=== PATIENT | female | born 1975 | race Asian ===

== ENCOUNTER 2018-03-03 16:45 | Outpatient (REF) | payer OTHER, SELFPAY ==
[2018-03-05 14:36] LABS: Chlamydia Result Negative; GC Result Negative; Specimen Description CERVIX
== END 2018-03-03 16:46 ==
LOC: LBN 16:45
PROVIDERS: PCP Internal Medicine; Visit Provider Nurse Practitioner Women's Health
DX: Z11.3 Encounter for screening for infections with a predominantly sexual mode of transmission (principal)
CPT/HCPCS: 87491; 87591

== ENCOUNTER 2019-01-18 07:16 | Outpatient (CLI) | payer BC, SELFPAY ==
[2019-01-18 08:33] LABS: Anion Gap 9.3 mmol/L (3-11); BUN 9 mg/dL (7-18); CO2 27.7 mmol/L (21.0-32.0); CREATININE 0.79 mg/dL (0.55-1.02); Calcium 9.3 mg/dL (8.5-10.1); Calculated LDL 100 mg/dL; Chloride 103 mmol/L (98-107); Cholesterol 188 mg/dL (50-200); Glucose 162 mg/dL (70-100); HDL Cholesterol 45 mg/dL (40-60); Potassium 4.4 mmol/L (3.5-5.1); Sodium 140 mmol/L (136-145); Triglyceride 215 mg/dL (30-150)
== END 2019-01-18 07:36 ==
PROVIDERS: PCP Internal Medicine; Visit Provider Internal Medicine
DX: I10 Essential (primary) hypertension (principal)
CPT/HCPCS: 36415; 80048; 80061; 83721

== ENCOUNTER 2019-02-03 13:52 | Outpatient (CLI) | payer BC, SELFPAY ==
[2019-02-03 14:41] LABS: Hemoglobin A1C 6.7 % (4.5-6.2)
== END 2019-02-03 14:12 ==
PROVIDERS: PCP Internal Medicine; Visit Provider Internal Medicine
DX: E11.9 Type 2 diabetes mellitus without complications (principal)
CPT/HCPCS: 36415; 83036

== ENCOUNTER 2022-05-14 03:28 | Outpatient (CLI) | payer OTHER, SELFPAY ==
[2022-05-14 08:51] LABS: Anion Gap 4.9 mmol/L (3-11); BUN 13 mg/dL (7-18); CO2 30.1 mmol/L (21.0-32.0); CREATININE 0.7 mg/dL (0.55-1.02); Calcium 8.7 mg/dL (8.5-10.1); Calculated LDL 97 mg/dL (<100); Chloride 103 mmol/L (98-107); Cholesterol 179 mg/dL (<200); Estimated GFR 107.95 (mL/min/1.73m2); Glucose 118 mg/dL (74-106); HDL Cholesterol 60 mg/dL (40-60); Potassium 3.6 mmol/L (3.5-5.1); Sodium 138 mmol/L (136-145); Triglyceride 111 mg/dL (<150)
[2022-05-14 09:38] LABS: COMMENT (LAB VIEW ONLY) 48.98 mg/dL; Microalb ug/mg Crea 3.5 ug/mg Cr
== END 2022-05-14 03:29 | disposition home or self-care (01) ==
LOC: LBO 03:28
PROVIDERS: PCP Nurse Practitioner Adult Health; Visit Provider Nurse Practitioner Adult Health
DX: I10 Essential (primary) hypertension (principal); E11.9 Type 2 diabetes mellitus without complications
CPT/HCPCS: 36415; 80048; 80061; 82043; 82570

== ENCOUNTER 2023-02-17 15:07 | Outpatient (REF) | payer BC, SELFPAY ==
--- NOTE | 2023-02-17 14:00 | PAPFT_PTH ---
PATIENT: Ashly Daly LOC: [facility] U#:[id number] AGE/SX: 47/F ROOM: RE02/17/[address]: Janis Jones APRN : 1975 BED: DIS: 02/17/2023 SPEC #: [id number] RECD: 02/17/23 17:25 STATUS: JORGE L JETT #: [id number] JESSICA: 02/17/23 14:[address]: Janis Jones DEPT: [facility] Cytology RECD BY: Anni Garcia Tissues: 1 - CX/ENDOCX FOR PAP SMEARS Procedures: PAP THIN PREP/[facility] Screening HPV DNA PROBE Comments: [id number]
== END 2023-02-17 15:08 | disposition home or self-care (01) ==
LOC: LBN 15:07
PROVIDERS: PCP Nurse Practitioner Adult Health; Visit Provider Nurse Practitioner Adult Health
DX: Z12.4 Encounter for screening for malignant neoplasm of cervix (principal); Z11.51 Encounter for screening for human papillomavirus (HPV)
CPT/HCPCS: 88142; 87624

== ENCOUNTER 2023-02-18 09:54 | Outpatient (REF) | payer BC, SELFPAY ==
[2023-02-23 13:30] LABS: Helicobacter pylori Ag, Feces Positive (Negative)
== END 2023-02-18 09:55 | disposition home or self-care (01) ==
LOC: LBN 09:54
PROVIDERS: PCP Nurse Practitioner Adult Health; Visit Provider Nurse Practitioner Adult Health
DX: R14.3 Flatulence (principal); R12 Heartburn
CPT/HCPCS: 87338

== ENCOUNTER → 2023-06-26 00:58 | Outpatient (CLI) | payer BC, SELFPAY ==
--- NOTE | 2023-06-26 12:51 | DI.RAD_ITS ---
Exam(s) XR CHEST 2V PA LATERAL EXAM: XR CHEST 2V PA LATERAL CLINICAL HISTORY: screening,+ ppd (had BCG). TECHNIQUE: 2D digital imaging was performed. COMPARISON: CR CHEST 2 VIEWS PA,LAT from 06/15/2015 FINDINGS: 2 views: Heart size is normal. The mediastinum is not widened. Lungs are clear. No infiltrates nor pleural effusions. IMPRESSION: No acute pulmonary findings. DATA REPOSITORY: RADIATION DOSE DELIVERED:
== END ==
PROVIDERS: PCP Nurse Practitioner Adult Health; Visit Provider Nurse Practitioner Family
DX: Z11.1 Encounter for screening for respiratory tuberculosis (principal)
CPT/HCPCS: 71046

== ENCOUNTER 2025-06-26 01:25 | Outpatient (CLI) | payer BC, SELFPAY ==
[2025-06-26 07:59] LABS: Hemoglobin A1C 6.5 % (<5.7)
[2025-06-26 08:11] LABS: Anion Gap 7.9 mmol/L (3-11); BUN 12 mg/dL (9-23); CO2 27.1 mmol/L (20.0-31.0); Calcium 8.7 mg/dL (8.3-10.6); Chloride 103 mmol/L (98-107); Cholesterol 189 mg/dL (<200); Glucose 153 mg/dL (74-106); HDL Cholesterol 56 mg/dL (>40); Potassium 4.0 mmol/L (3.5-5.1); Sodium 138 mmol/L (136-145)
== END 2025-06-26 01:26 | disposition home or self-care (01) ==
PROVIDERS: PCP Nurse Practitioner Adult Health; Referring Provider Nurse Practitioner Adult Health; Visit Provider Nurse Practitioner Adult Health
DX: I10 Essential (primary) hypertension (principal); E11.9 Type 2 diabetes mellitus without complications
CPT/HCPCS: 36415; 80048; 80061; 83036